=== PATIENT | male | born 1950 | race Caucasian/White ===

== ENCOUNTER → 2018-10-09 13:26 | Outpatient (CLI) | payer MEDICARE, OTHER, SELFPAY ==
[2018-10-09 15:23] LABS: AST(SGOT) 28 U/L (15-37); Alanine Aminotransfer ALT/SGPT 40 U/L (16-61); Albumin, Serum 4.1 g/dL (3.2-5.0); Alkaline Phosphatase 83 U/L (45-117); Bilirubin, Direct 0.15 mg/dL (0.00-0.30); Cholesterol 153 mg/dL (200); High Density Lipoprotein 31 mg/dL; Protein, Total 8.1 g/dL (6.4-8.2); Triglycerides 300 mg/dL; Very Low Density Lipoprotein 60 mg/dL (5-40)
== END ==
PROVIDERS: Family Provider Family Medicine; PCP Family Medicine; Referring Provider Internal Medicine Cardiovascular Disease; Visit Provider Internal Medicine Cardiovascular Disease
DX: I10 Essential (primary) hypertension (principal); E78.1 Pure hyperglyceridemia; E78.5 Hyperlipidemia, unspecified; Z98.61 Coronary angioplasty status
CPT/HCPCS: 36415; 80061; 80076

== ENCOUNTER → 2019-07-16 06:34 | Outpatient (CLI) | payer MEDICARE, OTHER, SELFPAY ==
[2019-02-20 09:53] VITALS: BMI 32.5
--- NOTE | 2019-07-16 13:38 | STRESSREP ---
Stress Test Report Exercise myocardial perfusion stress test 69-year-old man with a history of coronary artery disease angioplasty and stenting of the left anterior descending artery. Stress protocol: Resting EKG demonstrates sinus rhythm with rate of 62 bpm normal intervals are noted resting blood pressures 132/78 mmHg. The patient exercised according to regular Corby protocol for total duration of 8 minutes the maximum heart rate attained was 129 bpm which was 86% of maximum predicted heart rate the maximum workload was 10.1 metabolic equivalents. The patient maintained sinus rhythm throughout the recording. At rest there were no ST or T wave changes noted suggest ischemia at peak exercise upsloping ST changes only were noted with no meet the criteria for ischemia. No clinical angina was noted. The test was terminated due to dyspnea. The resting blood pressure was 132/78 with a peak blood pressure 172/60 mmHg. Myocardial perfusion protocol. 10.0 mCi of technetium 99m sestamibi was injected at rest. The patient exercised for a total duration of 8 minutes at peak exercise 30.0 mCi of technetium 99m sestamibi was injected stress images were obtained stress and rest images were reconstructed and compared in the short axis vertical and horizontal long axis. Gated images was obtained Perfusion SPECT analysis: Review of the stress images demonstrate normal uptake of tracer noted in all areas of myocardium. The resting images similarly demonstrate normal uptake of tracer noted in all areas of the myocardium. No areas of reversibility are noted suggest ischemia. No previous infarct is noted. Gated SPECT analysis: The gated ejection fraction is noted to be 63%. Conclusion: Normal exercise myocardial perfusion stress test at a high workload. No clinical angina noted. Preserved ejection fraction
== END ==
PROVIDERS: Family Provider Family Medicine; PCP Family Medicine; Referring Provider Internal Medicine Cardiovascular Disease; Visit Provider Internal Medicine Cardiovascular Disease
DX: I25.10 Atherosclerotic heart disease of native coronary artery without angina pectoris (principal); E87.1 Hypo-osmolality and hyponatremia
CPT/HCPCS: 78452; 93017; A9500; A4216

== ENCOUNTER → 2020-07-08 10:34 | Outpatient (CLI) | payer MEDICARE, OTHER, SELFPAY ==
[2019-02-20 09:53] VITALS: BMI 32.5
[2020-07-08 12:30] LABS: AST(SGOT) 31 U/L (15-37); Alanine Aminotransfer ALT/SGPT 55 U/L (16-61); Albumin, Serum 4.1 g/dL (3.2-5.0); Alkaline Phosphatase 90 U/L (45-117); Bilirubin, Direct 0.14 mg/dL (0.00-0.30); Cholesterol 175 mg/dL (200); Globulin 3.6 g/dL (2.2-4.2); High Density Lipoprotein 31 mg/dL; Protein, Total 7.7 g/dL (6.4-8.2); Triglycerides 457 mg/dL
== END ==
PROVIDERS: PCP Family Medicine; Referring Provider Internal Medicine Cardiovascular Disease; Visit Provider Internal Medicine Cardiovascular Disease
DX: E78.1 Pure hyperglyceridemia (principal); E78.5 Hyperlipidemia, unspecified; I25.10 Atherosclerotic heart disease of native coronary artery without angina pectoris
CPT/HCPCS: 80061; 80076

== ENCOUNTER → 2021-01-20 12:26 | Outpatient (CLI) | payer MEDICARE, OTHER, SELFPAY ==
[2020-08-25 11:03] VITALS: BMI 30.5
[2021-01-20 14:08] LABS: Vitamin D,25 Hydroxy 46.6 ng/mL
[2021-01-20 14:08] LABS: AST(SGOT) 21 U/L (15-37); Alanine Aminotransfer ALT/SGPT 34 U/L (16-61); Alkaline Phosphatase 92 U/L (45-117); Anion Gap 9 (5-15); BUN 13 mg/dL (7-18); Bilirubin, Direct 0.12 mg/dL (0.00-0.30); Calcium,Total 8.9 mg/dL (8.5-10.1); Chloride 102 mmol/L (98-107); Cholesterol 150 mg/dL (200); Creatinine, Serum 0.82 mg/dL (0.70-1.30); EST Glomerular Filtration Rate 99 mL/min (>60); Est Glom Filt Rate - Afr Amer 119 mL/min (>60); Globulin 3.9 g/dL (2.2-4.2); Glucose 110 mg/dL (74-106); High Density Lipoprotein 33 mg/dL; Potassium 3.8 mmol/L (3.5-5.1); Protein, Total 7.9 g/dL (6.4-8.2); Sodium Level 135 mmol/L (136-145); Triglycerides 250 mg/dL; Very Low Density Lipoprotein 50 mg/dL (5-40)
[2021-01-20 14:16] LABS: PSA,Total - Annual Screen 2.75 ng/mL (0.00-4.00)
== END ==
PROVIDERS: Nurse Practitioner Family; PCP Family Medicine; Referring Provider Family Medicine; Visit Provider Family Medicine
DX: Z00.00 Encounter for general adult medical examination without abnormal findings (principal); I25.10 Atherosclerotic heart disease of native coronary artery without angina pectoris; I10 Essential (primary) hypertension; E78.1 Pure hyperglyceridemia; E55.9 Vitamin D deficiency, unspecified; Z12.5 Encounter for screening for malignant neoplasm of prostate; Z95.5 Presence of coronary angioplasty implant and graft
CPT/HCPCS: 36415; 80048; 80061; 80076; 82306; 83036; 84153; G0103

== ENCOUNTER 2021-08-26 17:16 | Emergency (ER) | payer MEDICARE, OTHER, SELFPAY ==
[2021-08-26 17:17] VITALS: BP 143/82; PULSE 80; RESP 18; TEMP 36.4; O2SAT 94; BMI 31.3
--- NOTE | 2021-08-26 18:05 | RAD_ITS ---
STUDY: X-RAY - RIGHT HAND, ATTENTION THIRD FINGER REASON FOR EXAM: Male, 71 years old. Laceration on 1st Digit of rt foot. Stepped on glass. Toes taped and unable to separate due to laceration. TECHNIQUE: 3 view(s) of the finger were obtained. COMPARISON: None. FINDINGS: An acute horizontal fracture is present across the full width of the proximal shaft of the distal phalanx of the third digit with mild displacement and dorsal apex angulation of the distal fracture fragment. The surrounding soft tissues are mildly to moderately swollen. A laceration injury is also seen on the dorsal surface of the distal phalanx of the third digit. Overlying bandage material noted. The included portions of the thumb and index finger are normal. The IP joint spaces are mildly narrowed. RAD/Finger(s) Min 2 Views IMPRESSION: 1. Acute displaced fracture of the distal phalanx of the third digit Electronically Signed: Cristobal Case MD at 18:55 EST , Service support ,
--- NOTE | 2021-08-26 18:07 | EDS_ITS ---
HPI History of Present Illness Chief Complaint: Upper Extremity Injury Informant: patient Narrative Narrative: Patient presents with crush injury to the right distal long finger tip. This occurred to his dominant hand. He caught this in a door inside the house. No other injury occurred. It was bleeding likely due to being on aspirin. No other anticoagulation. No other injury. Compression makes it better. Nothing makes it worse. [facility] Medical History Asthma Atherosclerosis of coronary artery of [place] heart without angina pectoris Essential (primary) hypertension GERD (gastroesophageal reflux disease) Hyperlipidemia Hypertriglyceridemia Obesity Obstructive sleep apnea Home Medications aspirin 81 mg tablet,delayed release 81 mg PO DAILY 12/05/18 [History Last Taken Unknown] coenzyme Q10 100 mg capsule 100 mg PO DAILY 12/05/18 [History Last Taken Unknown] esomeprazole magnesium 40 mg capsule,delayed release 40 mg PO DAILY cap 12/05/18 [History Last Taken Unknown] escitalopram oxalate 10 mg tablet PO BID 90 Days #180 tab 08/25/20 [History Last Taken Unknown] multivitamin 1 tab PO DAILY 08/25/20 [History Last Taken Unknown] metoprolol succinate 100 mg tablet,extended release 24 hr 100 mg PO DAILY #90 tab 12/01/20 [Rx Last Taken Unknown] rosuvastatin 20 mg tablet 20 mg PO QDAY #90 tab 12/01/20 [Rx Last Taken Unknown] folate 1,000 mg PO 02/26/21 [History Last Taken Unknown] amlodipine 2.5 mg tablet 2.5 mg PO DAILY #90 tab 06/22/21 [Rx Last Taken Un known] gemfibrozil 600 mg tablet 600 mg PO BID #180 tab 06/22/21 [Rx Last Taken Unknown] losartan 100 mg tablet 100 mg PO DAILY #90 tab 06/22/21 [Rx Last Taken Unknown] doxycycline monohydrate 100 mg PO BID #20 cap 08/26/21 [Rx Last Taken Unknown] Allergy/AdvReac Type Severity Reaction Status Date / Time iodine AdvReac unknown Verified 08/26/21 17:19 lansoprazole [From Prevacid] AdvReac unknown Verified 08/26/21 17:19 pantoprazole [From Protonix] AdvReac unknown Verified 08/26/21 17:19 Penicillins AdvReac unknown Verified 08/26/21 17:19 ramipril [From Altace] AdvReac cough Verified 08/26/21 17:19 Sulfa (Sulfonamide AdvReac unknown Verified 08/26/21 17:19 Antibiotics) Family History Daughter CAD (coronary artery disease) Father CHF (congestive heart failure) Mother No problems noted. Surgical History History of coronary artery stent placement (10/21/04) Social History Smoking Status: Former smoker alcohol intake: never ROS ROS ED Constitutional Constitutional ED: Denies chills or fever(s) Respiratory/Chest Respiratory/Chest: Denies cough or dyspnea Gastrointestinal Gastrointestinal: Denies nausea or vomiting Musculoskeletal Musculoskeletal: Reports other Details: See History of present illness ; Denies back pain or neck pain Integumentary Reports Abrasions; Denies abscess or rash Neurologic Neurologic: Reports weakness; Denies headache(s) or paresthesias Hematologic/Lymphatic Hematologic/Lymphatic: Reports other Details: Patient takes aspirin but no other anticoagulation. ; Denies easy bleeding or easy bruising EXAM Physical Exam Const Vital Signs: 08/26/21 17:17 Temperature 97.6 F L Temperature Source Temporal Pulse Rate 80 Respiratory Rate 18 Blood Pressure 143/82 H Blood Pressure Mean 102 Pulse Ox 94 Oxygen Delivery Method Room Air Positive well nourished and well developed General Appearance ED: well developed and NAD Resp normal respiratory effort Extremity Extremity Narrative: Pain and has injury to his right middle finger. He clinically has a mallet finger with early swan-neck deformity. The proximal portion of the nail is lifted just up even with the cuticle area and likely loose from the matrix. However, there is no subungual hematoma. There is mild ooze from the wound likely because he takes aspirin. No injury to other fingers or hand. Neuro oriented x3 and no sensory deficits noted Sensorium / Orientation: alert Psych mental status grossly normal Skin Skin Narrative: No laceration. However, the area behind the nail is lifted up. The nail is pulled somewhat from the matrix area. MDM MDM MDM Narrative Medical decision making narrative: Procedure: Irrigation and reduction of open fracture fingertip, and application of volar aluminum finger splint: I sent images and discussed the case with Dr. Toledo. Michael was to remove the nail. We would then irrigate the wound. This would then be reduced and splinted. He will follow-up as an outpatient. We will get him started on antibiotics. I did anesthetize the with 50% mixture of bupivacaine and 1% lidocaine without epinephrine. A total of 3 cc was used. Full anesthesia was achieved. The wound was sterilely prepped and draped. It was irrigated and cleansed. The nail was removed without difficulty. There was a transverse laceration through the very proximal end of the nailbed really under the cuticle. This was accentuated with the underlying fracture. This allowed some aggressive irrigation of the wound. After irrigation, the fracture was reduced and the nailbed was placed back under the cuticle. Patient actually had much better range of motion after this. He tolerated this well. Further rinsing was done. Betadine soaked gauze was placed on there. This was loosely attached. We then placed a volar aluminum splint in extension. I discussed with the patient that he will likely have continued oozing from the wound because he is on aspirin. There was no pulsatile bleeding. This should stop but might need some compression or gauze change. We will get him on antibiotics and he will follow-up with Dr. Toledo. Discharge Plan Triage Chief Complaint: Upper Extremity Injury ED Provider: Sterling Akhtar Dx/Rx/DC Orders Clinical Impression: Open fracture of distal phalanx of finger of right hand, Nailbed laceration, finger Instructions: ED Fracture, Finger, Open Prescriptions: New doxycycline monohydrate 100 MG capsule 100 mg PO BID Qty: 20 RF: 0 No Action coenzyme Q10 [Co Q-10] 100 mg capsule 100 mg PO DAILY RF: 0 aspirin 81 mg tablet,delayed release (DR/EC) 81 mg PO DAILY RF: 0 esomeprazole magnesium [Nexium] 40 mg capsule,delayed release(DR/EC) 40 mg PO DAILY RF: 0 escitalopram oxalate 10 mg tablet PO BID 90 Days Qty: 180 RF: 0 multivitamin Tablet 1 tab PO DAILY RF: 0 folate 1,000 mg PO RF: 0 metoprolol succinate [Toprol XL] 100 mg tablet extended release 24 hr 100 mg PO DAILY Qty: 90 RF: 3 rosuvastatin 20 mg tablet 20 mg PO QDAY Qty: 90 RF: 3 gemfibrozil 600 mg tablet 600 mg PO BID Qty: 180 RF: 3 losartan 100 mg tablet 100 mg PO DAILY Qty: 90 RF: 3 amlodipine 2.5 mg tablet 2.5 mg PO DAILY Qty: 90 RF: 3 Primary Care Provider: Clif Martínez Referrals: Clif Martínez MD [Primary Care Provider] - Aquilino Toledo MD [STAFF PHYSICIAN] - As soon as possible Disposition Disposition: Home, Self Care
[2021-08-26] MEDS: Diphth,Pertuss(Acell),Tet Vac 0.5 ML Vial IM (18:18)
[2021-08-26] MEDS: Doxycycline 100 MG CAPSULE PO (18:19)
[2021-08-26] MEDS: Lidocaine 1% (20 ml mdv) 20 ML Vial 10 ML INFILT (20:01)
[2021-08-26] MEDS: Bupivacaine Mpf 0.5% 30 ML VIAL INFILT (20:02)
== END 2021-08-26 21:08 | disposition home or self-care (01) ==
PROVIDERS: Emergency Provider Emergency Medicine; PCP Family Medicine; Visit Provider Emergency Medicine
DX: S62.632B Displaced fracture of distal phalanx of right middle finger, initial encounter for open fracture (principal); I25.10 Atherosclerotic heart disease of native coronary artery without angina pectoris; Z87.891 Personal history of nicotine dependence; E78.5 Hyperlipidemia, unspecified; W23.0XXA Caught, crushed, jammed, or pinched between moving objects, initial encounter; I10 Essential (primary) hypertension; J45.909 Unspecified asthma, uncomplicated; K21.9 Gastro-esophageal reflux disease without esophagitis; E78.1 Pure hyperglyceridemia; G47.33 Obstructive sleep apnea (adult) (pediatric); E66.9 Obesity, unspecified; Y93.9 Activity, unspecified; Y92.019 Unspecified place in single-family (private) house as the place of occurrence of the external cause; Z79.82 Long term (current) use of aspirin; Z79.899 Other long term (current) drug therapy; Z95.5 Presence of coronary angioplasty implant and graft; S61.312A Laceration without foreign body of right middle finger with damage to nail, initial encounter
CPT/HCPCS: 26755; 11730; 11760; 73140; 90715; 99284

== ENCOUNTER → 2023-01-28 | Outpatient (CLI) | payer MEDICARE, OTHER, SELFPAY ==
[2023-01-28 13:30] LABS: Absolute Lymphocyte Count 3.67 X10^3/uL (0.83-4.51); Absolute Neutrophil Count 3.9 X10^3/uL (2.0-7.7); Basophil# 0.04 X10^3/uL; Basophil% 0.5 % (0-1); Eosinophil# 0.18 X10^3/uL; Eosinophils% 2.1 % (0-5); Hemoglobin 15.4 g/dL (13.0-16.5); Lymphocyte # 3.67 X10^3/ul (0.83-4.51); Lymphocyte % 43.5 % (19-41); Mean Corp Hgb Conc 33.5 g/dL (32-36); Mean Corpuscular Hgb 31.8 pg (27.0-32.0); Mean Platelet Vol. 11.1 fl (6.2-12.0); Monocyte# 0.64 X10^3/uL; Monocyte% 7.6 % (0-10); NRBC Flagged by Analyzer 0 % (0-5); Neutrophil # 3.88 X10^3/uL (2.7-7.7); Neutrophil % 45.9 % (47-70); Platelet Count 210 K/mm3 (150-450); RBC Distribution Width CV 12.8 % (11.6-14.6); RBC Distribution Width SD 44.3 fl (35.1-43.9); Red Blood Count 4.84 M/mm3 (4.6-6.2); White Blood Count 8.4 K/mm3 (4.4-11.0)
[2023-01-28 14:00] LABS: AST(SGOT) 27 U/L (15-37); Alanine Aminotransfer ALT/SGPT 39 U/L (16-61); Albumin, Serum 3.9 g/dL (3.2-5.0); Alkaline Phosphatase 84 U/L (45-117); Anion Gap 9 (5-15); BUN 17 mg/dL (7-18); BUN/Creat Ratio 23.5 RATIO (10-20); Calcium,Total 9.1 mg/dL (8.5-10.1); Chloride 104 mmol/L (98-107); Creatinine, Serum 0.72 mg/dL (0.70-1.30); EST Glomerular Filtration Rate 113 mL/min (>60); Est Glom Filt Rate - Afr Amer 136 mL/min (>60); Globulin 3.9 g/dL (2.2-4.2); Glucose 107 mg/dL (74-106); PSA,Total - Annual Screen 1.22 ng/mL (0.00-4.00); Potassium 4.1 mmol/L (3.5-5.1); Protein, Total 7.8 g/dL (6.4-8.2); Sodium Level 136 mmol/L (136-145); Vitamin D,25 Hydroxy 65.9 ng/mL
[2023-01-28 14:09] LABS: AST(SGOT) 27 U/L (15-37); Alanine Aminotransfer ALT/SGPT 38 U/L (16-61); Albumin, Serum 3.8 g/dL (3.2-5.0); Alkaline Phosphatase 87 U/L (45-117); Bilirubin, Direct 0.17 mg/dL (0.00-0.30); Cholesterol 146 mg/dL (200); Globulin 4.1 g/dL (2.2-4.2); High Density Lipoprotein 31 mg/dL; Protein, Total 7.9 g/dL (6.4-8.2); Triglycerides 207 mg/dL; Very Low Density Lipoprotein 41 mg/dL (5-40)
== END | disposition home or self-care (01) ==
LOC: LAB 11:08
PROVIDERS: Internal Medicine Cardiovascular Disease; PCP Family Medicine; Visit Provider Family Medicine
DX: Z00.00 Encounter for general adult medical examination without abnormal findings (principal); E78.1 Pure hyperglyceridemia; E78.5 Hyperlipidemia, unspecified; I25.10 Atherosclerotic heart disease of native coronary artery without angina pectoris
CPT/HCPCS: 36415; 80053; 80061; 80076; 82306; 84153; 85025; G0103

== ENCOUNTER → 2024-04-20 | Outpatient (CLI) | payer MEDICARE, OTHER, SELFPAY ==
--- NOTE | 2024-04-20 13:05 | RAD_ITS ---
INDICATION: LBP EXAMINATION/TECHNIQUE: X-RAY - XR Spine Lumbar Comp W/ Bending Min 6 Views COMPARISON: No relevant prior comparison study available FINDINGS: The vertebral bodies are normal in height. No definite fracture demonstrated. No subluxation. Mild disc space narrowing with osteophytes most levels. Facet arthropathy most pronounced at L4-5 and L5-S1. No paravertebral soft tissue mass identified. Approximately 12 mm calcific density overlying the left midabdomen region of the lower pole left kidney possibly a large renal calculus, versus stool content or other calcification. No subluxation with flexion or extension. RAD/L/S Spine w Bend Min 6 Vw IMPRESSION: Degenerative discogenic disease and facet arthropathy. Electronically Signed: Jayda Andrade MD at 8:00 EDT ,
--- NOTE | 2024-04-20 15:27 | STRESSREP ---
Stress Test Report Exercise myocardial perfusion stress test. 74-year-old man with a history of coronary disease risk factors Stress protocol: Resting EKG demonstrates normal sinus rhythm with a rate of 61 bpm resting blood pressure is 1 4474 mmHg. The patient exercised according to the regular Corby protocol for a total duration of 7 minutes attaining a maximum heart rate of 125 bpm which was 86% of maximum predicted heart rate; the maximum workload was 10.1 metabolic equivalents. At rest there were no ST or T wave changes noted to suggest ischemia and at peak exercise upsloping ST changes only were noted which did not meet the criteria for ischemia. No clinical angina was noted the test was terminated due to the target heart rate being achieved/fatigue. The peak blood pressure was 182/70 mmHg. Rate-pressure product was 19,002. Myocardial perfusion protocol. 11.9 mCi of technetium 99m sestamibi was injected at rest. The patient exercised according to regular Corby protocol for total duration of 7 and at peak exercise 34 point mCi of technetium 99m sestamibi was injected stress images were obtained stress and rest images were reconstructed in comparing the short axis vertical long and horizontal long axis. Gated images were also obtained. Perfusion SPECT analysis: Review of the stress images demonstrate normal uptake of tracer noted in all areas of the myocardium. The resting images similarly demonstrate normal uptake of tracer noted in all areas of the myocardium. No areas of reversibility are noted to suggest ischemia no previous infarct was noted. Gated SPECT analysis: The gated ejection fraction is 63%. Conclusion: Normal exercise myocardial perfusion stress test at a high workload Preserved ejection fraction.
== END | disposition home or self-care (01) ==
PROVIDERS: PCP Family Medicine; Referring Provider Nurse Practitioner Family; Visit Provider Nurse Practitioner Family
DX: M54.50 Low back pain, unspecified (principal); R07.9 Chest pain, unspecified; Z95.5 Presence of coronary angioplasty implant and graft
CPT/HCPCS: 72114; 78452; 93017; A9500; A4216

== ENCOUNTER → 2024-05-10 | Outpatient (CLI) | payer MEDICARE, OTHER, SELFPAY ==
--- NOTE | 2024-05-10 12:49 | CT_ITS ---
STUDY: CT ABDOMEN WITHOUT CONTRAST REASON FOR EXAM: Male, 74 years old. L abdominal calcification on xray RADIATION DOSAGE (If Supplied By Facility): CTDIvol = ( 18.76 ) mGy, DLP = ( 698.10 ) mGycm TECHNIQUE: Transaxial images were obtained without intravenous contrast, and without oral contrast. Sagittal and coronal images were reconstructed. Individualized dose optimization techniques were used for this CT. COMPARISON: None. FINDINGS: Minimal degree of increased markings at the lung bases suggestive of atelectasis and/or scarring. Coronary artery calcification. Normal liver. Normal gallbladder and extrahepatic biliary system. Normal spleen. Normal pancreas. Normal bilateral adrenal glands. There is a 5.2 cm x 4.8 cm cyst in the lateral aspect of the right kidney. There is a 7.6 cm x 6.8 cm x 7.1 cm cyst in the upper pole of the left kidney. There is a 1.2 cm calculus in the lower pole calyx of the left kidney. There is a small hiatal hernia. Normal small intestine. Normal colon. The appendix is visualized and appears normal. There is scattered atherosclerotic calcification of the abdominal aorta, without a demonstrated aneurysm. Normal inferior vena cava. Normal retroperitoneum. Normal abdominal wall. There are degenerative changes of the visualized lumbar spine. CT/Abdomen without IV Contrast IMPRESSION: Bilateral renal cysts more prominent on the left side. 12 mm nonobstructive calculus in the lower pole calyx of the left kidney. Electronically Signed: Marvin Raza MD at 13:59 EDT ,
== END | disposition home or self-care (01) ==
LOC: CT 12:46
PROVIDERS: PCP Family Medicine; Referring Provider Family Medicine; Visit Provider Family Medicine
DX: N20.0 Calculus of kidney (principal)
CPT/HCPCS: 74150

== ENCOUNTER 2024-05-30 13:00 | Outpatient (RCR) | payer MEDICARE, OTHER, SELFPAY ==
--- NOTE | 2024-05-09 13:53 | HP.PTEVAL ---
Patient's Visit Information Visit Information Visit Information: XOCHITL BOCANEGRA is a 74 year old M referred to Physical Therapy by Dr. Abebe Martínez MD with a diagnosis of DDD Lumbar. Date of Evaluation: 05/09/24 Physical Therapist: Shan Acosta, DPT, OCS, CSCS Visit Plan Frequency: 2x /Week Duration: 4-6 Weeks Plan: 2x/week for 4-6 weeks for: IE: pelvic tilt, trunk rotation supine, fis all 10x 3x/day, NS posture in standing, avodi aggravating activities all with HO Please rollout and stretch and teach for HEP HS and psoas/quad stretches with pics LB ROM progression to rotation and extensionn to tolerance and mobs as needed core and hip NS strength to I at home general gym based core and postural strength to I. MH as needed. Subjective Subjective: LBP sciatica/ X ray DDD. Been painful for 2-3 yrs. pain is worsening over time. Constant a little bit but standing is worse as is riding in a car with bumy road. Stand only 5-10 minutes. Walking is better. No Leg symptoms, maybe walking down steps feels unassured and weak. No falls. Sitting too long can hurt. Sleep is OK but getting up is stiff and sore for first steps. 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 Avoids squatting and bending alot, avoids kneeling. No regular exercises , Family doctor gave him exercises in last 3 weeks, leg stretches. Basic ADLSL: all I but shower tough to bend to wash bottom of feet, legs feel weak. Pain LBP: Pain Intensity (Out of 10): 2 Pain Intensity Range: 1 and 7 Objective Objective: Walks stiff but I into PT. Short steps adn little rotation. Trasnfers bed and chair I. steps reciprocal but feels weak desecnding. Lumbar AROM max tight ext at 5 degrees and painful, flexion max tight, SB max defictis in motion. HS max tight at -45 90/90 test. Pelvic motion is very poor and challenging for patient to do posteriorly. reflexes 1/3 patella adnd achilles sensation LE WNL to gross light touch. strength is 4+/5 without myotomal problems in LE. 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 Goal Time Frame: 4-6 Weeks Rehabilitation Potential Physical Therapy Diagnosis: stiffness and pain LB and pelvis limiting funciton Rehabilitation Potential: Good Anticipated Interventions Patient/Client Instruction: Educate patient on: Condition and Plan of Care For the Purpose of:: To decrease pain, To increase ROM, To improve nutrient delivery to tissue, To increase tolerance to activity/condition/position and To improve gait and locomotor functions Therapeutic Exercise to Include: Strength training, Passive ROM, Active ROM and Dynamic Lumbar Stabilization For the Purpose of:: To decrease pain, To increase ROM, To improve muscle performance and motor function and To improve gait and locomotor functions Manual Therapy Techniques to Include: Mobilization, Passive ROM and Soft tissue mobilization For the Purpose of:: To decrease pain, To increase ROM and To improve nutrient delivery to tissue Thermo therapy (hot pack): Yes For the Purpose of:: To decrease pain and To improve nutrient delivery to tissue Text: Thank you for the opportunity to evaluate your patient. For Medicare and Medicare HMO plans, please review the plan of care and approve it. It will need to be FAXED BACK to us at [phone] for Medicare purposes. For Medicare only, by signing this I certify the plan of care. Please let me know if there are questions or concerns regarding this plan of care. Physician Signature: Date:
--- NOTE | 2024-05-30 13:49 | HP.PTDCSUM ---
Discharge Summary D/C summary: It has been my pleasure to treat XOCHITL BOCANEGRA referred by Dr. Abebe Martínez MD, with the diagnosis of DDD Lumbar for a total of 7 visit(s). Discharge Date: 05/30/24 Please see the following information for a summary of their discharge status. Subjective Subjective: Doinig exercises and challenged. It helps with flexibility. Pain is normal for last few years. 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 Pain in the last week up to 8/10. No f/u with doctor Mauricio. Activities are normal but avoids crawling under tractor or sink and knows this will hurt his back. Wants to try doing exercises on own at home. Pain LBP: Pain Intensity (Out of 10): 4 Overall Improvement % Improvement: 50 Objective Objective/Function: ROM LB is good and without pain today, stretching lower paraspinals can hurt but better as he goes. Walking up tall and well today. Overall more flexible but has not helped overall pain much. Wishes to continue on his own at home and will contact doctor if needs other treatments, did not wish to learn a gym program for [facility]. 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 Thank you for the referral of this patient. Sincerely, Shan Acosta, DPT, OCS, CSCS Balance/Gait/Functional tests Balance/Special Test Scores Oswestry Low Back Score: 17 Improvement % Improvement: 50
== END 2024-05-30 19:00 | disposition home or self-care (01) ==
LOC: PT 13:00
PROVIDERS: PCP Family Medicine; Referring Provider Family Medicine; Visit Provider Family Medicine
DX: M51.369 Other intervertebral disc degeneration, lumbar region without mention of lumbar back pain or lower extremity pain (principal)
CPT/HCPCS: 97110; 97161; 97530

== ENCOUNTER → 2024-09-10 | Outpatient (CLI) | payer MEDICARE, OTHER, SELFPAY ==
--- NOTE | 2024-09-10 13:49 | CT_ITS ---
EXAM: CT CHEST, LUNG CANCER SCREENING WITHOUT INTRAVENOUS CONTRAST CLINICAL INDICATION: Nicotine dependence, cigarettes, uncomplicated TECHNIQUE: Helically acquired images were obtained of the chest without intravenous contrast using low dose (LDCT) lung cancer screening protocol. This CT exam was performed using one or more of the following dose reduction techniques: automated exposure control, adjustment of the mA and/or kV according to patient size, and/or use of iterative reconstruction technique. COMPARISON: No relevant prior studies available. FINDINGS: LUNGS AND PLEURAL SPACES: See below. HEART: There are moderate coronary artery calcifications. There is a nodule in the left lung base that measures 8 mm. This is seen on a previous CT scan dated 05/10/2024 and is unchanged. Heart size is normal. No pericardial effusion. MEDIASTINUM: Unremarkable. No mediastinal or hilar adenopathy. Esophagus is unremarkable. No hiatal hernia. THYROID: Unremarkable. No thyroid lesions. BONES/JOINTS: Unremarkable. No suspicious lytic or blastic abnormality. VASCULATURE: See above. LYMPH NODES: Unremarkable. No enlarged lymph nodes. CT/Low Dose CT Lung Screening IMPRESSION: Nodule in the left lung base which is stable. There is no acute pulmonary abnormality. Lung-RADS score: 2 - Benign Appearance or Behavior. Recommend continued annual screening with a low-dose CT (LDCT) in 12 months. Electronically Signed: Aubrey Summers MD at 17:54 EST ,
== END | disposition home or self-care (01) ==
LOC: CT 13:48
PROVIDERS: PCP Family Medicine; Referring Provider Internal Medicine Pulmonary Disease; Visit Provider Internal Medicine Pulmonary Disease
DX: Z87.891 Personal history of nicotine dependence (principal)
CPT/HCPCS: 71271